=== PATIENT | female | born 1995 | race Caucasian/White ===

== ENCOUNTER 2020-12-08 07:26 | Inpatient (IN) | payer OTHER ==
[2020-12-08 08:06] LABS: AMPHETAMINES NEGATIVE (NEGATIVE); BARBITURATES NEGATIVE (NEGATIVE); ECSTASY (MDMA) NEGATIVE (NEGATIVE); MARIJUANA (THC) POSITIVE (NEGATIVE); METHADONE NEGATIVE (NEGATIVE); OPIATES NEGATIVE (NEGATIVE); OXYCODONE NEGATIVE (NEGATIVE)
[2020-12-08 08:15] LABS: HCT 35.2 % (37.0-47.0); HGB 11.6 g/dl (12.5-16.0); MPV 11.4 fL (6.0-9.5); RBC 3.87 M/uL (4.20-5.40); RDW 14.9 % (11.5-14.0); WBC 12.6 K/uL (4.0-10.5)
[2020-12-09 05:58] LABS: HGB 9.4 g/dl (12.5-16.0); MCH 29.8 pg (25.0-31.0); MCHC 31.3 g/dL (32.0-36.0); MPV 11.8 fL (6.0-9.5); RBC 3.15 M/uL (4.20-5.40); RDW 15.1 % (11.5-14.0); WBC 11.2 K/uL (4.0-10.5)
[2020-12-09 06:13] LABS: MCV 95.2 fL (78.0-100.0)
--- NOTE | 2020-12-09 16:37 | NUR ---
MET WITH PT. DUE TO A REFERRAL REGARDING POS THC ON ADMISSION. MS. ADAN STATED THAT SHE WAS A PATIENT AT "[facility]" IN [place]. SHE HAS BEEN WITH THEM FOR 2-3 YRS FOR COUNSELING AND SUBUTEX TREATMENT. SHE STATED THAT SHE SMOKED MARIJUANA WITHIN THE LAST 6-8 WEEKS, BUT HAS VAPED DELTA 8. THE INFANTS CORD BLOOD HAS BEEN SENT TO THE LAB FOR ANAYLSIS. MOTHER STATES THAT WHEN HER OLDEST DAUGHTER, MATT, WAS BORN IN MAY 2018 SHE HAD TO GO [facility] FOR TREATMENT CPS OPENED A CASE ON HER. SHE ALSO PARTICPATED IN THE HANDS PROGRAM. SHE REPORTS THAT SHE AND HER BOYFRIEND, AINSLEY, RYLAN ALEXANDER, RESIDE TOGETHER IN 3 BEDROOM HOUSE. SHE IS EMPLOYED AT [employer] IN [place]. SHE STATED THAT THE FOB IS CLEAN AT THIS TIME. THE MOTHER IS SO NOT TO CUASE THE BABY TO WITHDRAW FROM THE SUBUTEX. THE NURSES NO NOT EXPRESS ANY CONCERNS REGARDING THE CARE OF THE . A CPS REFERRAL WAS MADE AND THE WEB REFERAL ID IS [id number].
== END 2020-12-10 17:40 | disposition home or self-care (01) | DRG 784 ==
LOC: FOB 07:26 → FMS 09:00 → FOB 12-10 17:40
PROVIDERS: ADMIT Obstetrics & Gynecology
PROC: 10D00Z1 Extraction of Products of Conception, Low, Open Approach (ICD-10-PCS; principal; 2020-12-08 09:00)
PROC: 0UB70ZZ Excision of Bilateral Fallopian Tubes, Open Approach (ICD-10-PCS; 2020-12-08 09:00)
DX: O34.211 Maternal care for low transverse scar from previous cesarean delivery (principal); D62 Acute posthemorrhagic anemia; Z37.0 Single live birth; Z3A.39 39 weeks gestation of pregnancy; Z20.822 Contact with and (suspected) exposure to COVID-19; O99.02 Anemia complicating childbirth; R82.5 Elevated urine levels of drugs, medicaments and biological substances; O99.334 Smoking (tobacco) complicating childbirth; Z80.3 Family history of malignant neoplasm of breast; Z30.2 Encounter for sterilization; F11.11 Opioid abuse, in remission; F17.200 Nicotine dependence, unspecified, uncomplicated
CPT/HCPCS: 36415; 80305; 84550; 86850; 86900; 86901; J0690; J1885; J2274; J2370; J2405; J3010; J7120